=== PATIENT | female | born 1980 | race Asian ===

== ENCOUNTER 2024-05-25 22:20 | Emergency (ER) | payer OTHER ==
[~2024-05-25] VITALS: Ht 160 cm; Wt 59.0 kg
[2024-05-25 22:36] VITALS: BP_SYST 101; PULSE 72; RESP 18; TEMP 97.1; O2SAT 100
[2024-05-26] MEDS: KETOROLAC TROMETHAMINE 30 MG VIAL IM ONE (01:05)
[2024-05-26] MEDS: ACETAMINOPHEN 500 MG TABLET PO ONE (01:05)
[2024-05-26] MEDS: CYCLOBENZAPRINE HCL 10 MG TABLET (FLEXERIL) PO ONE (01:05)
[2024-05-26] MEDS: LIDOCAINE PATCH 5% 1 EA TP ONE ×2 (01:06→03:00)
[2024-05-26] MEDS ORDERED: LIDO1ADH22 TP (04:22)
[2024-05-26 04:34] VITALS: BP_SYST 105; PULSE 58; RESP 16; TEMP 96.8; O2SAT 98
== END 2024-05-26 04:34 | disposition home or self-care (01) ==
LOC: SED 22:20
DX: S22.31XA Fracture of one rib, right side, initial encounter for closed fracture (principal); Z79.899 Other long term (current) drug therapy; W18.2XXA Fall in (into) shower or empty bathtub, initial encounter; Y93.89 Activity, other specified; Y92.89 Other specified places as the place of occurrence of the external cause; Y99.8 Other external cause status
CPT/HCPCS: 99285; 71250; 96372; J1885